=== PATIENT | female | born 1995 | race Caucasian/White ===

== ENCOUNTER 2024-02-08 22:41 | Emergency (ER) | payer BC ==
[~2024-02-08] VITALS: Ht 160 cm; Wt 65.8 kg
[2024-02-08] MEDS ORDERED: LIDOCAINE 1% INJ 50 ML MDV IJ ONE (23:46)
[2024-02-09] MEDS ORDERED: AMOX/CLAVULANATE 875 MG TABLET ONE (00:07)
[2024-02-09] MEDS ORDERED: TDAP [DIPH/PERTUSSIS/TET] 0.5 ML VIAL IM ONE (00:08)
[2024-02-09] MEDS: AMOX/CLAVULANATE 875 MG TABLET PO ONE (00:33)
[2024-02-09] MEDS: TDAP [DIPH/PERTUSSIS/TET] 0.5 ML VIAL IM ONE (00:33)
[2024-02-09] MEDS ORDERED: AMOX-430 PO (00:36)
[2024-02-09 00:59] VITALS: BP 131/82; TEMP 97.1; O2SAT 100
== END 2024-02-09 00:59 | disposition home or self-care (01) ==
LOC: ER 22:46
DX: S61.213A Laceration without foreign body of left middle finger without damage to nail, initial encounter (principal); W54.0XXA Bitten by dog, initial encounter; Y93.89 Activity, other specified; Y92.89 Other specified places as the place of occurrence of the external cause; Y99.8 Other external cause status
CPT/HCPCS: 12002; 90471; 90715; 99283; J3490